=== PATIENT | male | born 1965 | race Caucasian/White ===

== ENCOUNTER 2017-08-09 19:49 | Observation (INO) | payer MEDICARE ==
[2017-08-09 20:27] LABS: #Eosinphils 0.3 thou/uL (0.0-0.7); #Lymphocytes 2.3 thou/uL (1.20-3.40); #Monocytes 0.4 thou/uL (0.11-0.59); %Basophils 0.4 % (0.0-1.0); %Eosinophils 5.8 % (0.0-10.0); %Lymphocytes 37.6 % (21.0-51.0); %Monocytes 6.9 % (0.0-10.0); %Neutrophils 49.3 % (42.0-75.0); Hemoglobin 16.1 g/dL (14.0-18.0); Mean Corpuscular HGB CONC 33.5 g/dL (32.0-36.0); Mean Corpuscular Hemoglobin 29.9 pg (27.0-31.0); Mean Corpuscular Volume 89.1 fl (80.0-94.0); Mean Platelet Volume 8.5 fL (7.4-10.4); Platelet Count 169 thou/uL (130-400); RBC Distribution Width 11.3 % (11.5-14.5); Red Blood Cell (RBC) Count 5.38 mill/uL (4.70-6.10)
[2017-08-09 20:45] LABS: ALT (SGPT) 17 U/L (8-55); AST (SGOT) 23 U/L (5-34); Albumin 3.9 g/dL (3.5-5.0); Alkaline Phosphatase 107 U/L (40-150); Anion Gap 11 mmol/L (10-20); BUN (Urea Nitrogen) 11 mg/dL (8.4-25.7); Bilirubin, Total 0.5 mg/dL (0.2-1.2); CK (CPK) 35 U/L (30-200); Calc. Creatinine Clearance 0 mL/min (70-130); Carbon Dioxide 28 mmol/L (22-29); Chloride 100 mmol/L (98-107); Estimated GFR-MDRD 78; Globulin 4.1 g/dL (2.4-3.5); Glucose 97 mg/dL (70-105); Potassium 4.4 mmol/L (3.5-5.1); Sodium 135 mmol/L (136-145)
[2017-08-09 20:50] LABS: Troponin I Less than 0.010 ng/mL (< 0.028)
[2017-08-09 21:08] LABS: CKMB 1.1 ng/mL (0-6.6)
[2017-08-09] MEDS ORDERED: Meclizine HCl 25 MG TAB ONE (21:10)
--- NOTE | 2017-08-09 21:25 | RAD ---
ONE VIEW CHEST: History: Syncopal episode. Comparison: None. FINDINGS: Normal cardiac silhouette. Lungs and pleural spaces are clear. No pneumothorax or osseous abnormality . IMPRESSION: No acute cardiopulmonary process. POS: P[facility]
--- NOTE | 2017-08-09 21:25 | RAD ---
RIGHT SHOULDER THREE VIEWS: History: Syncopal episode. Comparison: 07-06-16 FINDINGS: Visualized right ribs are unremarkable. No fracture or dislocation. IMPRESSION: No fracture or dislocation. POS: PPP
--- NOTE | 2017-08-09 21:40 | CT ---
HEAD CT WITHOUT CONTRAST: History: Fall, dizziness. Comparison: None. Technique: Noncontrast head CT is performed from skull base to skull vertex. FINDINGS: No parenchymal hemorrhage. No extraaxial hematoma. No midline shift. Basilar cisterns are patent. Bra in volume age appropriate. Cortical estrada white matter differentiation is preserved. Ventricles and sulci are patent and symmetric. Calvarium is intact. Adequate aeration of the sinuses and mastoid air cells. Cavernous carotid athero sclerosis is noted. IMPRESSION: No acute intracranial process. POS: PPP
--- NOTE | 2017-08-10 00:38 | PDOC.FPRHP ---
- History of Present Illness Chief Complaint: Dizziness History of Present Illness: 52 yo M w/hx of untreated HIV here with complaint of dizziness for apprx 2 weeks. He states that he woke apprx 2 days ago and felt like the room was spinning. Closing his eyes helps his symptoms, while standing and walking makes them worse. He as associated nausea and tinnitus b/l. He denies headache, changes in vision, or new loss of sensation or strength peripherally. Yesterday he was walking into his house and experienced a syncopal episode which was witnessed by his girlfriend. He states that he can remember feeling dizzy and then falling. She states that he was unconscious for 45 sec. She denies seizure like activity. There was no loss of continence. Afterwards there was no period of time of confusion or decreased awareness. Pt did fall on his R shoulder and has had pain with ROM since He does complain of loss of sensation in his feet for the past few years following an accident where shop equipment fell on his back. He did not have this accident worked up, however states that since that time he has had decreased sensation in his feet. Regarding HIV he has been out of his meds for a few months. He did see Dr Fajardo recently who conrado a CD4 count which resulted in 394. - Allergies/Adverse Reactions Allergies Allergy/AdvReac Type Severity Reaction Status Date / Time promethazine [From Phenergan] Allergy Verified 08/10/17 01:12 vancomycin Allergy Verified 08/10/17 01:12 - Home Medications Medication Instructions Recorded Confirmed Type No Known [No Known] 08/10/17 08/10/17 History - History PMHx: HIV, previously classified as AIDS Hep C, treated HTN Previous MAC arthritis Previous MRSA endocarditis PSHx: Multiple orthopedic surgeries on L Knee and R shoulder FHx: Paternal DM Social: Only drinks occasionally Smokes cigars Smokes marijuana - Review of Systems General: denies: fever/chills, weight/appetite/sleep changes, night sweats Eyes: denies: vision changes ENT: denies: nasal congestion Respiratory: denies: cough, congestion, shortness of breath Cardiovascular: denies: chest pain, palpitation, edema Gastrointestinal: reports: nausea, constipation (no BM in 2 days). denies: vomiting Genitourinary: denies: incontinence, dysuria Skin: denies: rashes, lesions Musculoskeletal: denies: pain, tenderness Neurological: reports: numbness (b/l feet), syncope (1 episode yesterday) Psychological: denies: anxiety, depression - Vital signs BP: 129/99 HR: 98 RR: 22 Tmax: 98.3 Pox: 95% on RA Wt: 104 kg - Physical Exam Constitutional: NAD, awake, alert and oriented HEENT: normocephalic and atraumatic, PERRLA, EOMI, grossly normal vision, grossly normal hearing, MMM Neck: supple, FROM, trachea midline, other (Carotid bruits present) Chest: no-tender to palpation Heart: RRR, no murmurs/rubs/gallops, no edema Lungs: CTAB, no respiratory distress, good air movement Abdomen: soft, non-tender, bowel sounds present Musculoskeletal: normal structure, normal tone, other (Decreased active ROM in both shoulders) Neurological: no focal deficit, CN II-XII intact, DTRs 2+ -Neurological: HINTS exam normal Significant loss of sensation in feet Proprioception intact Field of vision normal No dysdiadochokinesia Skin: no rash/lesions, good turgor Heme/Lymphatic: no unusual bruising or bleeding, no purpura Psychiatric: normal mood and affect, good judgment and insight FMR H&P: Results - Labs Result Diagrams: 08/09/17 20:18 08/09/17 20:18 Lab results: WBC 6.0 thou/uL (4.8-10.8) 08/09/17 20:18 Hgb 16.1 g/dL (14.0-18.0) 08/09/17 20:18 Hct 47.9 % (42.0-52.0) 08/09/17 20:18 MCV 89.1 fl (80.0-94.0) 08/09/17 20:18 Plt Count 169 thou/uL (130-400) 08/09/17 20:18 Neutrophils % 49.3 % (42.0-75.0) 08/09/17 20:18 Sodium 135 mmol/L (136-145) L 08/09/17 20:18 Potassium 4.4 mmol/L (3.5-5.1) 08/09/17 20:18 Chloride 100 mmol/L (98-107) 08/09/17 20:18 Carbon Dioxide 28 mmol/L (22-29) 08/09/17 20:18 BUN 11 mg/dL (8.4-25.7) 08/09/17 20:18 Creatinine 1.01 mg/dL (0.6-1.3) 08/09/17 20:18 Glucose 97 mg/dL (70-105) 08/09/17 20:18 Calcium 9.0 mg/dL (7.8-10.44) 08/09/17 20:18 Total Bilirubin 0.5 mg/dL (0.2-1.2) 08/09/17 20:18 AST 23 U/L (5-34) 08/09/17 20:18 ALT 17 U/L (8-55) 08/09/17 20:18 Alkaline Phosphatase 107 U/L (40-150) 08/09/17 20:18 Creatine Kinase 35 U/L (30-200) 08/09/17 20:18 CK-MB (CK-2) 1.1 ng/mL (0-6.6) 08/09/17 20:18 Serum Total Protein 8.0 g/dL (6.0-8.3) 08/09/17 20:18 Albumin 3.9 g/dL (3.5-5.0) 08/09/17 20:18 - EKG Interpretation EKG: NSR at 93. Left anterior fasicular block. No st changes or t wave changes. Normal axis - Radiology Interpretation CT scan - head Status: report reviewed by me (No acute process) Chest x-ray Status: image reviewed by me, report reviewed by me (No acute process) Other Status: report reviewed by me (Xray shoulder - no fracture or dislocation) FMR H&P: A/P - Problem List (1) Vertigo Current Visit: Yes Status: Acute Priority: High Code(s): R42 - DIZZINESS AND GIDDINESS (2) HIV (human immunodeficiency virus infection) Current Visit: Yes Status: Chronic Priority: High (3) HTN (hypertension) Current Visit: Yes Status: Chronic Priority: Medium Code(s): I10 - ESSENTIAL (PRIMARY) HYPERTENSION Qualifiers: Hypertension type: essential hypertension Qualified Code(s): I10 - Essential (primary) hypertension (4) Shoulder pain Current Visit: Yes Status: Acute Priority: Medium Code(s): M25.519 - PAIN IN UNSPECIFIED SHOULDER Qualifiers: Laterality: right (5) History of hepatitis C Current Visit: Yes Status: Acute Priority: Medium Code(s): Z86.19 - PERSONAL HISTORY OF OTHER INFECTIOUS AND PARASITIC DISEASES (6) Neuropathy Current Visit: Yes Status: Chronic Priority: Low Code(s): G62.9 - POLYNEUROPATHY, UNSPECIFIED (7) Syncopal episodes Current Visit: Yes Status: Acute Code(s): R55 - SYNCOPE AND COLLAPSE - Plan Vertigo - unclear etiology. Consider CVA vs BPPV vs labyrinthitis - Low concern for CVA given normat CT and HINTs - neuro exam normal with the exception of loss of sensation in feet which is apparently chronic in nature - ED consulted Dr Fajardo who recommended admission for further work up to include MRI, will order for am - fall precautions - admit to tele obs Syncopal episode - likely related to vertigo. Obs on tele to monitor for arrhythmia HIV - consult Dr Fajardo - restart HEART - is not currently immunocompromised given CD4 of 390 HTN - per previous clinic records, pt should be on lisinopril/HCTZ, however he has been off all meds for months and has not been seen by his PCP in 18 months - will monitor vitals and start meds as indicated Peripheral neuropathy - this has apparently been present for years, however has not been previously worked up. Symptoms are not necessarily consistent with trauma given no loss of motor function - will start vitamin supplementation here and recommend further work up in outpatient setting Shoulder pain - Related to fall. no fracture or dislocation. Motrin for pain Hep C, treated PPx SCD Diet regular Code Full Dispo: pt is stable. Will continue to rule out cardiac and or vascular causes of his symptoms. Likely length of stay 24-48 hours FMR H&P: Upper Level - Pertinent history PCP: Avery Patient is a 52yo CM with PMHx of HIV, Hep C s/p treatment and HTN who presents with 2-3wk hx of dizziness. Yesterday while walking into his house he opened the door and suddenly had tunnel vision. He fell and his his RT shoulder and RT side of his head. He does not remember the event. Witnessed by his and LOC for about 30sec. Denies any seizure like activity or incontinence at that time. He has had the dizziness for the past 2-3wks but has never fallen before because of it. Describes it as the room spinning like he is drunk. Worsened with head movement and going from sitting/lying position to standing. Improved with sleeping. Associated with nausea but no vomiting. Endorses BL feet/hand numbness for the past year as well as chronic noises in his ear. LT ear- like he is hearing crickets and RT ear- echo sound. Initially denies blurry vision but then states he does have it. Of note, he has not been taking his HIV medicine for 3mo. ED: 2L bolus NS, meclizine 50mg PO - Pertinent findings T 98.3 BP 141/89 HR 88 RR 20 O2 95% on RA Wt. 104kg General: NAD, resting in bed Heart: S1 S2, RRR, distant heart sounds; +BL carotid bruits Lungs: CTAB Abd: soft, NT/ND/BS+ Ext: no cyanosis or edema Neuro: CN2-12 intact; strength and FTNF difficult to obtain due to shoulder injuries, decreased sensation at BL plantar feet; decreased sensation at BL LE L >R; proprioception intact; no nystagmus; wide based gait WBC 6, H/H 16.1/47.9 CK-MB 1.1 troponin <0.01 EKG: NSR CXR: no acute process RT shoulder XR: no fracture/dislocation CT Brain: negative - Plan Date/Time: 08/10/17 0037 1. Syncope: Patient with acute episode of syncope following a fall yesterday. Denies any prodromal symptoms and just reports everything went black. Does not remember the event but was witnessed by his who reports he had LOC for about 30sec. Monitor on tele. Obtain orthostatics. No Echo at this time as patient has no major EKG abnormalities, cardiac hx or premature familial CHD. Of note, patient has fairly significant peripheral neuropathy as well as dizziness that is likely contributing to episode. Of note, patient with hx of HIV and Hep C s/p treatment. Dr. Fajardo was consulted from the ED who recommends syncope work-up and brain MRI as patient was treated with Harvoni. 2. Vertigo: Patient with 2-3wk hx of dizziness associated with nausea, but no vomiting worsened with head movements and going from sitting/lying to standing position. Could be 2/2 BPPV though Mirela hallpike was negative. Also reports tinnitus but no deafness so Menieres is low on differential. Pt with TIA/CVA RF including HTN and smoking but symptoms have been ongoing for weeks and components of HINTS exam are negative. Unclear etiology. 3. Peripheral neuropathy: Patient with 1yr hx of peripheral neuropathy. No hx of diabetes. Obtain TSH, B12,B6 and vitD. 4. HIV: diagnosed in 2006. Dr. Fajardo consulted from ED and most recent CD4 count of 394. Thus, do not suspect opportunistic infection at this time. Patient prescribed Atripla but has not been on medicine for 3mo due to financial costs. Appreciate Scotty recs. 5. HepC: s/p treatment with Harvoni by Dr. Fajardo. Reports completed treatment > 1yr ago. 6. HTN: pt denies hx of HTN but according to our records in 2016, he was on Lisinopril/HCTZ. Monitor and restart meds if needed. 7. Hx of rectal cancer s/p resection. 8. Rotator cuff tear: specifically RT shoulder with full thickness supraspinatus tendon extending into infraspinatous. LT shoulder with moderate tear near junction of supraspinatus and infraspinatus. Supposed to have surgery years ago. 9. Diet: HH 10. PPx: SCDs 11. Code Status: Full I, Kayleen Booth, have evaluated this patient and agree with findings/ plan as outlined by internal sales engineer resident. Pertinent changes/additions are listed here.
[2017-08-10] MEDS ORDERED: Bisacodyl 5 MG TAB PO PRN (01:07)
[2017-08-10] MEDS ORDERED: Ondansetron ODT 4 MG TAB PO PRN (01:07)
[2017-08-10] MEDS: Acetaminophen 325 MG TAB PO PRN ×2 (01:22→12:04)
[2017-08-10 02:04] VITALS: BMI 29.5
[2017-08-10 04:49] LABS: Thyroid Stimulating Hormone 1.3733 uIU/mL (0.35-4.94)
[2017-08-10 07:24] LABS: Vitamin D, 25 Hydroxy 29.5 ng/ml (> 30.0)
[2017-08-10] MEDS ORDERED: Meclizine HCl 25 MG TAB PO PRN (09:40)
[2017-08-10 10:02] LABS: Amphetamine Detected (NotDetected); Barbiturates Screen Not Detected (NotDetected); Benzodiazepine Screen Not Detected (NotDetected); Cocaine Metabolite Screen Not Detected (NotDetected); Medtox Control Line Valid? VALID (VALID); Medtox Reader # READER 4; Methadone Not Detected (NotDetected); Methamphetamine Detected (NotDetected); Opiate Screen Not Detected (NotDetected); Oxycodone Screen Not Detected (NotDetected); Phencyclidine (PCP) Not Detected (NotDetected); THC/Cannabinoid Screen Not Detected (NotDetected); Tricyclic Screen Not Detected (NotDetected)
--- NOTE | 2017-08-10 14:45 | ADD-HP ---
I have reviewed the history and physical of Dr. Nir Clark and have discussed the case with him. I agree with his assessment and plan. Briefly, Mr. Yadav is a 52-year-old white male patient with a history of HIV and treated hepatiti s C who was admitted with rather profound vertigo. This is likely peripheral, but Dr. Fajardo was cons ulted and has also suggested getting an MRI. His brain CT was negative. In any event this morning, he looks awake, alert, although still complaining of vertigo. PHYSICAL EXAMINATION: VITAL SIGNS: His blood pressure is 130/85. His heart rate is 82, respirations are 14. He is afebri le. GENERAL: He is awake, alert, in no distress. ENT: No focal deficits. CARDIAC: Heart rhythm regular, no gallop or murmur noted. LUNGS: Clear. No rales or wheezes. ABDOMEN: Flat and soft. No guarding, rebound or rigidity. NEUROLOGIC: No focal deficits. LABORATORY DATA: CBC: White count of 6000, hemoglobin 16.1, hematocrit 47.9. Chemistries: Sodium 135, potassium 4.4, chloride 100, bicarbonate 28, BUN 11, creatinine 1.01. As stated, his brain CT w as negative for a stroke. ASSESSMENT: 1. Acute vertigo. 2. Human immunodeficiency virus. PLAN: Admit. Consult Dr. Fajardo and proceed with MRI.
--- NOTE | 2017-08-10 14:45 | MRI ---
MRI BRAIN WITH AND WITHOUT CONTRAST: HISTORY: Syncope. COMPARISON: None. TECHNIQUE: Brain MRI is performed with and without intravenous Gadolinium administration. Multisequential, mult iplanar imaging is performed. FINDINGS: No hemorrhage on the axial gradient echo sequence. No parenchymal mass, mass effect, or midline shift. Age-appropriate atrophy. Cortical estrada-white ma tter differentiation is preserved. Ventricles and sulci are patent and symmetric. Central arterial flow voids are maintained. Absent restricted diffusion. No significant T2 and FLAIR white matter hyperintensities. No pathologic enhancement of the brain parenchyma. Calvarium has a normal T1 marrow signal intensity. Midline brain parenchymal structures are unremark able. Adequate aeration of the sinuses and mastoid air cells. IMPRESSION: 1. Absent restricted diffusion. No acute infarction. 2. No significant T2 or FLAIR white matter hyperintensities. 3. No pathologic enhancement of the brain parenchyma. POS: [facility]
[2017-08-10 15:28] VITALS: BP 136/83; TEMP 98.5
--- NOTE | 2017-08-11 15:11 | DIS-2 ---
LOCATION: [facility] in [place], [place] DATE OF SERVICE: 08/10/2017 ADMITTING ATTENDING: Dr. Elroy Hester. DISCHARGE ATTENDING: Dr. Elroy Hester. RESIDENT PHYSICIAN: Dr. Amol Calvert. CONSULTATIONS: None. PROCEDURES: 1. Chest x-ray done on 08/09/2017, showed no acute cardiopulmonary process. 2. Brain CT on 08/09/2017, showed no acute intracranial process. 3. Brain MRI done on 08/10/2017, showed no acute infarction. 4. Shoulder x-ray done on 08/09/2017, showed no fracture or dislocation. PRIMARY DIAGNOSIS: Vertigo. SECONDARY DIAGNOSES: 1. Human immunodeficiency virus. 2. History of hepatitis C, status post treatment. 3. Hypertension. 4. Neuropathy. DISCHARGE MEDICATIONS: None. DISCONTINUED MEDICATIONS: None. HISTORY OF PRESENT ILLNESS AND HOSPITAL COURSE: The patient is a 52-year-old male with a past medica l history of HIV, hypertension, and history of hepatitis C, status post Harvoni treatment, who presen patsy with a 2-week history of ringing in his ears, left worse than right with associated vertiginous-t ype symptoms. The patient reported on initial presentation, closing his eyes helps with his symptoms , while standing makes him worse. He did report some nausea associated with this. Prior to admissio n, the patient was walking in the house and had a witnessed syncopal episode that was witnessed by th e patient's girlfriend who denied any seizure-like activity. There is no loss of bowel or bladder co ntinence at that time and then afterward, there is no postictal phase. Regarding HIV, the patient has been off his meds for the past few months and he does follow up with Ramona Fajardo as outpatient who recently do a CD4 which was 394 at that time making the patient not immuno compromised. Patient was admitted to telemetry and observed overnight. There were no events on the monitor overni ght. He remained in normal sinus rhythm. Orthostatic vitals were checked which were negative. The patient's symptoms were controlled p.r.n. with meclizine and he was discharged home in stable conditi on without any events overnight or on the monitor. The patient did have a urine drug screen which was positive for methamphetamine. PERTINENT LABORATORY AND DIAGNOSTIC DATA: Initial troponin was less than 0.010, CK-MB was 0.1. Sodi um is 135. RBC folate is 850. TSH was 1.37. Vitamin D was 29.5, hematocrit 45.7. Tox screen was p ositive for urine amphetamines and methamphetamines. CBC was within normal limits. The patient had a Dyer-Hallpike maneuver performed in the ED without any resolution of the symptoms. Additionally, the patient had a brain CT done on 08/09/2017, which showed no acute intracranial proce ss. Brain MRI was done on 08/10/2017, which showed absent restricted diffusion. No acute infarction. Overall, the patient had an uncomplicated hospital course and left the hospital in stable condition. DISPOSITION: Stable. DISCHARGE INSTRUCTIONS: 1. Location: Home. 2. Diet: Heart healthy. 3. Activity: Ad albino. 4. Followup: Follow up PCP in 5-7 days following discharge.
[2017-08-11 16:14] LABS: Folate,Hemolysate 388.4 ng/mL (Not Estab.); Hematocrit 45.7 % (37.5-51.0); RBC Folate Test Component 850 ng/mL (>498)
== END 2017-08-10 17:53 | disposition home or self-care (01) ==
LOC: ERS 19:49 → 2SW 23:20
PROVIDERS: ADMIT Student in an Organized Health Care Education/Training Program; ATTEND Student in an Organized Health Care Education/Training Program
DX: R42 Dizziness and giddiness (principal); I10 Essential (primary) hypertension; M25.511 Pain in right shoulder; G62.9 Polyneuropathy, unspecified; R55 Syncope and collapse; F17.210 Nicotine dependence, cigarettes, uncomplicated; Z86.19 Personal history of other infectious and parasitic diseases; Z88.1 Allergy status to other antibiotic agents; Z88.8 Allergy status to other drugs, medicaments and biological substances; Z21 Asymptomatic human immunodeficiency virus [HIV] infection status
CPT/HCPCS: 70450; 70553; 71045; 73030; 80306; 82306; 82550; 82553; 82607; 82747; 84207; 84484; 85014; 93005; 96360; 96361; 99285; G0378; G8979; G8980; 36415; 80053; 84443; 85025; Q0162

== ENCOUNTER 2020-12-04 13:22 | Inpatient (IN) | payer MEDICARE, MEDICAID ==
[~2020-12-04 13:22] MED LIST: Iopamidol-370 76% 500 ML 1 ML ONE
[2020-12-04 15:07] LABS: #Lymphocytes 0.7 thou/uL (1.20-3.40); #Monocytes 0.3 thou/uL (0.11-0.59); #Neutrophils 1.9 thou/uL (1.40-6.50); %Basophils 1.3 % (0.0-1.0); %Eosinophils 0.5 % (0.0-10.0); %Lymphocytes 23.8 % (21.0-51.0); %Monocytes 8.9 % (0.0-10.0); %Neutrophils 65.6 % (42.0-75.0); Mean Corpuscular HGB CONC 33.8 g/dL (32.0-36.0); Mean Corpuscular Hemoglobin 30.4 pg (27.0-31.0); Mean Corpuscular Volume 89.9 fL (78.0-98.0); Mean Platelet Volume 8.7 fL (7.4-10.4); Platelet Count 174 thou/uL (130-400); RBC Distribution Width 11.7 % (11.5-14.5); Red Blood Cell (RBC) Count 4.93 mill/uL (4.70-6.10); White Blood Cell (WBC) Count 2.9 thou/uL (4.8-10.8)
[2020-12-04 15:58] LABS: ALT (SGPT) 20 U/L (8-55); AST (SGOT) 36 U/L (5-34); Albumin 3.2 g/dL (3.5-5.0); Alkaline Phosphatase 85 U/L (40-110); Anion Gap 12 mmol/L (10-20); BUN (Urea Nitrogen) 13 mg/dL (8.4-25.7); Bilirubin, Total 0.6 mg/dL (0.2-1.2); Calc. Creatinine Clearance 0 mL/min (70-130); Calcium 7.5 mg/dL (7.8-10.44); Carbon Dioxide 23 mmol/L (22-29); Chloride 106 mmol/L (98-107); Globulin 2.8 g/dL (2.4-3.5); Glucose 83 mg/dL (70-105); Potassium 4.3 mmol/L (3.5-5.1); Sodium 137 mmol/L (136-145)
[2020-12-04 16:11] LABS: CKMB 4.9 ng/mL (0-6.6)
[2020-12-04] MEDS ORDERED: cefTRIAXone\\ROCEPHIN 1 GM VIAL ONE (16:13)
[2020-12-04] MEDS ORDERED: Azithromycin 500 MG in Sodium Chloride 0.9% 250 ML 250 ML IVPB SCH (16:30)
[2020-12-04] MEDS ORDERED: Ondansetron PF 4 MG/2 ML Vial IVP PRN (17:14)
[2020-12-04] MEDS ORDERED: Bisacodyl 5 MG TAB PO PRN (17:14)
[2020-12-04] MEDS ORDERED: Enoxaparin Sodium 40 MG/0.4 ML SYRINGE SC SCH (17:15)
[2020-12-04] MEDS ORDERED: Dexamethasone 10 MG in Sodium Chloride 0.9% 50 ML IVPB SCH (17:18)
[2020-12-04] MEDS ORDERED: Enoxaparin Sodium 100 MG/ML SYRINGE ONE (18:15)
[2020-12-04] MEDS ORDERED: Dexamethasone 4 mg/ml Vial SLOW IVP SCH (18:15)
[2020-12-04 20:27] VITALS: BMI 28.0
[2020-12-04] MEDS: Famotidine/PF 20 mg/2ml Vial SLOW IVP SCH (21:02)
[2020-12-05] MEDS: Thiamine 100 MG TAB PO SCH (09:19)
[2020-12-05] MEDS: Cholecalciferol 1,000 UNITS (25 MCG) TAB PO SCH (09:19)
[2020-12-05] MEDS: Ascorbic Acid 500 mg Chewable Tablet PO SCH (09:19)
[2020-12-05] MEDS: Famotidine/PF 20 mg/2ml Vial SLOW IVP SCH ×2 (09:20→21:29)
[2020-12-05] MEDS: Zinc Sulfate 220 MG CAP PO SCH (09:20)
[2020-12-05] MEDS: Dexamethasone 4 mg/ml Vial SLOW IVP SCH (09:20)
[2020-12-05] MEDS: Enoxaparin Sodium 40 MG/0.4 ML SYRINGE SC SCH (09:21)
[2020-12-05] MEDS: guaiFENesin ER 600 MG TAB PO SCH (21:29)
[2020-12-06] MEDS: guaiFENesin 200 MG TAB PO PRN (05:55)
[2020-12-06 07:38] LABS: ALT (SGPT) 20 U/L (8-55); AST (SGOT) 23 U/L (5-34); Albumin 3.3 g/dL (3.5-5.0); Alkaline Phosphatase 86 U/L (40-110); Anion Gap 10 mmol/L (10-20); BUN (Urea Nitrogen) 17 mg/dL (8.4-25.7); Bilirubin, Total 0.4 mg/dL (0.2-1.2); Calc. Creatinine Clearance 124 mL/min (70-130); Calcium 8.8 mg/dL (7.8-10.44); Carbon Dioxide 29 mmol/L (22-29); Chloride 106 mmol/L (98-107); Globulin 3.3 g/dL (2.4-3.5); Glucose 129 mg/dL (70-105); Potassium 4.1 mmol/L (3.5-5.1); Protein, Total 6.6 g/dL (6.0-8.3); Sodium 141 mmol/L (136-145)
[2020-12-06] MEDS: Dexamethasone 4 mg/ml Vial SLOW IVP SCH (09:00)
[2020-12-06] MEDS: Cholecalciferol 1,000 UNITS (25 MCG) TAB PO SCH (09:01)
[2020-12-06] MEDS: Famotidine/PF 20 mg/2ml Vial SLOW IVP SCH ×2 (09:01→20:56)
[2020-12-06] MEDS: Enoxaparin Sodium 40 MG/0.4 ML SYRINGE SC SCH (09:01)
[2020-12-06] MEDS: guaiFENesin ER 600 MG TAB PO SCH ×2 (09:02→20:57)
[2020-12-06] MEDS: Thiamine 100 MG TAB PO SCH (09:02)
[2020-12-06] MEDS: Senokot S 8.6-50 MG TAB PO PRN ×2 (09:02→20:56)
[2020-12-06] MEDS: Ascorbic Acid 500 mg Chewable Tablet PO SCH (09:02)
[2020-12-06] MEDS: Zinc Sulfate 220 MG CAP PO SCH (09:02)
[2020-12-06] MEDS: Acetaminophen 325 MG TAB PO PRN (21:09)
[2020-12-07] MEDS: guaiFENesin 200 MG TAB PO PRN (01:30)
[2020-12-07] MEDS: guaiFENesin ER 600 MG TAB PO SCH ×2 (08:41→20:29)
[2020-12-07] MEDS: Senokot S 8.6-50 MG TAB PO PRN ×2 (08:41→20:30)
[2020-12-07] MEDS: Bictegrav/Emtricit/Tenofov Ala [Biktarvy 50-200-25 Mg Tablet] PO SCH (08:41)
[2020-12-07] MEDS: Thiamine 100 MG TAB PO SCH (08:41)
[2020-12-07] MEDS: Enoxaparin Sodium 40 MG/0.4 ML SYRINGE SC SCH (08:41)
[2020-12-07] MEDS: Famotidine/PF 20 mg/2ml Vial SLOW IVP SCH ×2 (08:42→20:29)
[2020-12-07] MEDS: Zinc Sulfate 220 MG CAP PO SCH (08:42)
[2020-12-07] MEDS: Dexamethasone 4 mg/ml Vial SLOW IVP SCH (08:42)
[2020-12-07] MEDS: Cholecalciferol 1,000 UNITS (25 MCG) TAB PO SCH (08:42)
[2020-12-07] MEDS: Ascorbic Acid 500 mg Chewable Tablet PO SCH (08:42)
[2020-12-07] MEDS ORDERED: Bictegrav/Emtricit/Tenofov Ala [Biktarvy 50-200-25 Mg Tablet] PO SCH (09:00)
[2020-12-07 10:30] LABS: ALT (SGPT) 40 U/L (8-55); AST (SGOT) 43 U/L (5-34); Albumin 3.4 g/dL (3.5-5.0); Alkaline Phosphatase 84 U/L (40-110); Anion Gap 12 mmol/L (10-20); BUN (Urea Nitrogen) 18 mg/dL (8.4-25.7); Bilirubin, Total 0.4 mg/dL (0.2-1.2); CRP (Inflammatory) 1.19 mg/dL (= or < 0.5); Calc. Creatinine Clearance 119 mL/min (70-130); Calcium 8.5 mg/dL (7.8-10.44); Carbon Dioxide 27 mmol/L (22-29); Chloride 105 mmol/L (98-107); Glucose 106 mg/dL (70-105); Potassium 3.9 mmol/L (3.5-5.1); Protein, Total 6.4 g/dL (6.0-8.3); Sodium 140 mmol/L (136-145)
[2020-12-08 07:18] LABS: ALT (SGPT) 82 U/L (8-55); AST (SGOT) 58 U/L (5-34); Albumin 3.4 g/dL (3.5-5.0); Alkaline Phosphatase 84 U/L (40-110); Anion Gap 12 mmol/L (10-20); BUN (Urea Nitrogen) 19 mg/dL (8.4-25.7); Bilirubin, Total 0.4 mg/dL (0.2-1.2); Calc. Creatinine Clearance 117 mL/min (70-130); Calcium 8.6 mg/dL (7.8-10.44); Carbon Dioxide 28 mmol/L (22-29); Chloride 104 mmol/L (98-107); Glucose 90 mg/dL (70-105); Potassium 4.3 mmol/L (3.5-5.1); Protein, Total 6.4 g/dL (6.0-8.3); Sodium 140 mmol/L (136-145)
[2020-12-08] MEDS: Zinc Sulfate 220 MG CAP PO SCH (08:18)
[2020-12-08] MEDS: Bictegrav/Emtricit/Tenofov Ala [Biktarvy 50-200-25 Mg Tablet] PO SCH (08:18)
[2020-12-08] MEDS: Thiamine 100 MG TAB PO SCH (08:18)
[2020-12-08] MEDS: guaiFENesin ER 600 MG TAB PO SCH ×2 (08:18→21:28)
[2020-12-08] MEDS: Cholecalciferol 1,000 UNITS (25 MCG) TAB PO SCH (08:18)
[2020-12-08] MEDS: Enoxaparin Sodium 40 MG/0.4 ML SYRINGE SC SCH (08:18)
[2020-12-08] MEDS: Ascorbic Acid 500 mg Chewable Tablet PO SCH (08:18)
[2020-12-08] MEDS: Dexamethasone 4 mg/ml Vial SLOW IVP SCH (08:19)
[2020-12-08] MEDS: Famotidine/PF 20 mg/2ml Vial SLOW IVP SCH ×2 (08:19→21:28)
[2020-12-08] MEDS: Senokot S 8.6-50 MG TAB PO PRN (21:28)
[2020-12-08] MEDS: Acetaminophen 325 MG TAB PO PRN (21:29)
[2020-12-09] MEDS: guaiFENesin 200 MG TAB PO PRN ×3 (04:57→17:07)
[2020-12-09] MEDS: Enoxaparin Sodium 40 MG/0.4 ML SYRINGE SC SCH (08:40)
[2020-12-09] MEDS: Bictegrav/Emtricit/Tenofov Ala [Biktarvy 50-200-25 Mg Tablet] PO SCH (08:40)
[2020-12-09] MEDS: guaiFENesin ER 600 MG TAB PO SCH ×2 (08:41→22:53)
[2020-12-09] MEDS: Dexamethasone 4 mg/ml Vial SLOW IVP SCH (08:41)
[2020-12-09] MEDS: Thiamine 100 MG TAB PO SCH (08:41)
[2020-12-09] MEDS: Cholecalciferol 1,000 UNITS (25 MCG) TAB PO SCH (08:41)
[2020-12-09] MEDS: Zinc Sulfate 220 MG CAP PO SCH (08:41)
[2020-12-09] MEDS: Ascorbic Acid 500 mg Chewable Tablet PO SCH (08:41)
[2020-12-09] MEDS: Famotidine/PF 20 mg/2ml Vial SLOW IVP SCH ×2 (08:41→22:53)
[2020-12-09 08:49] LABS: Anion Gap 14 mmol/L (10-20); BUN (Urea Nitrogen) 16 mg/dL (8.4-25.7); Calc. Creatinine Clearance 142 mL/min (70-130); Calcium 8.3 mg/dL (7.8-10.44); Carbon Dioxide 23 mmol/L (22-29); Chloride 106 mmol/L (98-107); Glucose 80 mg/dL (70-105); Sodium 138 mmol/L (136-145)
[2020-12-09 09:52] LABS: Band 14 % (5-11); Hemoglobin 15.2 g/dL (14.0-18.0); Lymphocytes 21 % (21-51); MDiff Complete? YES; Mean Corpuscular HGB CONC 32.6 g/dL (32.0-36.0); Mean Corpuscular Hemoglobin 29.8 pg (27.0-31.0); Mean Corpuscular Volume 91.5 fL (78.0-98.0); Mean Platelet Volume 9.2 fL (7.4-10.4); Monocytes 1 % (0-10); Myelocyte 2 % (0-0); Neutrophil 50 % (42-75); Platelet Count 250 thou/uL (130-400); RBC Distribution Width 11.8 % (11.5-14.5); Reactive Lymphocytes 12 % (0-10); Red Blood Cell (RBC) Count 5.11 mill/uL (4.70-6.10); White Blood Cell (WBC) Count 7.7 thou/uL (4.8-10.8)
[2020-12-10] MEDS: Enoxaparin Sodium 40 MG/0.4 ML SYRINGE SC SCH (08:18)
[2020-12-10] MEDS: Bictegrav/Emtricit/Tenofov Ala [Biktarvy 50-200-25 Mg Tablet] PO SCH (08:18)
[2020-12-10] MEDS: Zinc Sulfate 220 MG CAP PO SCH (08:18)
[2020-12-10] MEDS: Cholecalciferol 1,000 UNITS (25 MCG) TAB PO SCH (08:18)
[2020-12-10] MEDS: guaiFENesin ER 600 MG TAB PO SCH ×2 (08:18→21:06)
[2020-12-10] MEDS: Famotidine/PF 20 mg/2ml Vial SLOW IVP SCH ×2 (08:18→21:05)
[2020-12-10] MEDS: Ascorbic Acid 500 mg Chewable Tablet PO SCH (08:18)
[2020-12-10] MEDS: Dexamethasone 4 mg/ml Vial SLOW IVP SCH (08:18)
[2020-12-10] MEDS: Thiamine 100 MG TAB PO SCH (08:18)
[2020-12-11] MEDS: guaiFENesin ER 600 MG TAB PO SCH ×2 (09:37→20:47)
[2020-12-11] MEDS: Ascorbic Acid 500 mg Chewable Tablet PO SCH (09:37)
[2020-12-11] MEDS: Thiamine 100 MG TAB PO SCH (09:37)
[2020-12-11] MEDS: Enoxaparin Sodium 40 MG/0.4 ML SYRINGE SC SCH (09:37)
[2020-12-11] MEDS: Zinc Sulfate 220 MG CAP PO SCH (09:37)
[2020-12-11] MEDS: Bictegrav/Emtricit/Tenofov Ala [Biktarvy 50-200-25 Mg Tablet] PO SCH (09:37)
[2020-12-11] MEDS: Famotidine/PF 20 mg/2ml Vial SLOW IVP SCH ×2 (09:37→20:47)
[2020-12-11] MEDS: Cholecalciferol 1,000 UNITS (25 MCG) TAB PO SCH (09:37)
[2020-12-11] MEDS: Dexamethasone 4 mg/ml Vial SLOW IVP SCH (09:38)
[2020-12-12] MEDS: Bictegrav/Emtricit/Tenofov Ala [Biktarvy 50-200-25 Mg Tablet] PO SCH (08:44)
[2020-12-12] MEDS: Enoxaparin Sodium 40 MG/0.4 ML SYRINGE SC SCH (08:44)
[2020-12-12] MEDS: Ascorbic Acid 500 mg Chewable Tablet PO SCH (08:45)
[2020-12-12] MEDS: Zinc Sulfate 220 MG CAP PO SCH (08:45)
[2020-12-12] MEDS: Famotidine/PF 20 mg/2ml Vial SLOW IVP SCH (08:45)
[2020-12-12] MEDS: Cholecalciferol 1,000 UNITS (25 MCG) TAB PO SCH (08:45)
[2020-12-12] MEDS: Dexamethasone 4 mg/ml Vial SLOW IVP SCH (08:45)
[2020-12-12] MEDS: guaiFENesin ER 600 MG TAB PO SCH (08:45)
[2020-12-12] MEDS: Thiamine 100 MG TAB PO SCH (08:45)
[2020-12-12 08:46] VITALS: BP 110/76; TEMP 97.8
== END 2020-12-12 15:56 | DRG 974 ==
LOC: ERS 13:22 → T4-A 16:34
PROVIDERS: ADMIT Internal Medicine; ATTEND Hospitalist
PROC: 8E0ZXY6 Isolation (ICD-10-PCS; principal; 2020-12-04)
PROC: 3E0333Z Introduction of Anti-inflammatory into Peripheral Vein, Percutaneous Approach (ICD-10-PCS; 2020-12-04)
DX: U07.1 COVID-19 (principal); J96.01 Acute respiratory failure with hypoxia; B20 Human immunodeficiency virus [HIV] disease; J12.82 Pneumonia due to coronavirus disease 2019; I10 Essential (primary) hypertension; M19.90 Unspecified osteoarthritis, unspecified site; F31.9 Bipolar disorder, unspecified; F12.10 Cannabis abuse, uncomplicated; F19.10 Other psychoactive substance abuse, uncomplicated; F17.210 Nicotine dependence, cigarettes, uncomplicated; G62.9 Polyneuropathy, unspecified; Z88.1 Allergy status to other antibiotic agents; Z88.8 Allergy status to other drugs, medicaments and biological substances; Z91.14 Patient's other noncompliance with medication regimen; Z83.3 Family history of diabetes mellitus; Z86.19 Personal history of other infectious and parasitic diseases
CPT/HCPCS: 36415; 71045; 71275; 80048; 80053; 82553; 83605; 84145; 84484; 85007; 85025; 85027; 85379; 85652; 86140; 87040; 93005; 94760; J0456; J0696; J1100; J1650; J7050; Q9967; S0028

== ENCOUNTER 2021-06-13 15:32 | Inpatient (IN) | payer MEDICARE, MEDICAID ==
[~2021-06-13 15:32] MED LIST changes: +Cyclobenzaprine 10 MG TAB PO PRN; -Iopamidol-370 76% 500 ML 1 ML ONE; +traMADol HCl 50 MG TAB PO PRN
[2021-06-13] MEDS ORDERED: Ondansetron PF 4 MG/2 ML Vial ONE (16:03)
[2021-06-13] MEDS ORDERED: Morphine 4 MG/ML VIAL ONE (16:03)
[2021-06-13] MEDS ORDERED: Cyclobenzaprine 10 MG TAB PO PRN ×2 (22:22→23:31)
[2021-06-13] MEDS ORDERED: traMADol HCl 50 MG TAB PO PRN ×2 (22:22→23:31)
[2021-06-13 22:23] LABS: #Eosinphils 0.3 thou/uL (0.0-0.7); #Lymphocytes 1.3 thou/uL (1.20-3.40); #Monocytes 0.3 thou/uL (0.11-0.59); #Neutrophils 2.3 thou/uL (1.40-6.50); %Eosinophils 6.4 % (0.0-10.0); %Lymphocytes 31.3 % (21.0-51.0); %Monocytes 7.6 % (0.0-10.0); %Neutrophils 53.7 % (42.0-75.0); Hemoglobin 13.8 g/dL (14.0-18.0); Mean Corpuscular HGB CONC 33.6 g/dL (32.0-36.0); Mean Corpuscular Hemoglobin 31.1 pg (27.0-31.0); Mean Corpuscular Volume 92.6 fL (78.0-98.0); Mean Platelet Volume 7.7 fL (7.4-10.4); Platelet Count 192 thou/uL (130-400); RBC Distribution Width 12.9 % (11.5-14.5); Red Blood Cell (RBC) Count 4.43 mill/uL (4.70-6.10); White Blood Cell (WBC) Count 4.3 thou/uL (4.8-10.8)
[2021-06-13] MEDS ORDERED: hydrALAZINE 20 MG/ML VIAL SLOW IVP PRN (22:23)
[2021-06-13] MEDS ORDERED: Promethazine HCl 25 MG/ML VIAL IM PRN (22:23)
[2021-06-13] MEDS ORDERED: Ondansetron PF 4 MG/2 ML Vial IVP PRN (22:23)
[2021-06-13] MEDS ORDERED: Dextrose 5% in Water 1,000 ML IV PRN (22:23)
[2021-06-13] MEDS ORDERED: Dextrose 50% Abboject 50 ML SYRINGE SLOW IVP PRN (22:23)
[2021-06-13] MEDS ORDERED: Bisacodyl 5 MG TAB PO PRN (22:24)
[2021-06-13] MEDS ORDERED: Ketorolac Tromethamine 30 MG/ML VIAL IVP SCH ×2 (22:30)
[2021-06-13] MEDS ORDERED: Acetaminophen 325 MG TAB PO SCH (22:30)
[2021-06-13] MEDS ORDERED: Acetaminophen 500 MG TAB PO SCH (22:30)
[2021-06-13] MEDS ORDERED: traMADol HCl 50 MG TAB PO SCH ×3 (22:30→23:59)
[2021-06-13 22:44] LABS: Anion Gap 11 mmol/L (10-20); BUN (Urea Nitrogen) 11 mg/dL (8.4-25.7); Calc. Creatinine Clearance 0 mL/min (70-130); Carbon Dioxide 22 mmol/L (22-29); Chloride 108 mmol/L (98-107); Potassium 3.6 mmol/L (3.5-5.1); Sodium 137 mmol/L (136-145)
[2021-06-13 22:45] LABS: ALT (SGPT) 15 U/L (8-55); AST (SGOT) 19 U/L (5-34); Albumin 3.7 g/dL (3.5-5.0); Alkaline Phosphatase 138 U/L (40-110); Bilirubin, Total 1.2 mg/dL (0.2-1.2); Calcium 8.2 mg/dL (7.8-10.44); Globulin 2.6 g/dL (2.4-3.5); Glucose 97 mg/dL (70-105); Protein, Total 6.3 g/dL (6.0-8.3)
[2021-06-13] MEDS ORDERED: Ketorolac Tromethamine 30 MG/ML VIAL ONE (23:06)
[2021-06-14 04:30] VITALS: BMI 27.8
[2021-06-14] MEDS ORDERED: Acetaminophen 325 MG TAB PO SCH (04:30)
[2021-06-14] MEDS: Acetaminophen 500 MG TAB PO SCH ×3 (05:27→19:39)
[2021-06-14] MEDS: Ibuprofen 600 MG TAB PO SCH ×3 (05:28→21:11)
[2021-06-14] MEDS: traMADol HCl 50 MG TAB PO SCH ×3 (05:28→17:41)
[2021-06-14] MEDS ORDERED: Senokot S 8.6-50 MG TAB PO SCH ×2 (09:00)
[2021-06-14] MEDS ORDERED: Famotidine 20 MG TAB PO SCH (09:00)
[2021-06-14] MEDS: Famotidine 20 MG TAB PO SCH ×2 (09:22→21:10)
[2021-06-14] MEDS: Zinc Sulfate 220 MG CAP PO SCH (09:22)
[2021-06-14] MEDS: Senokot S 8.6-50 MG TAB PO SCH ×2 (09:22→21:10)
[2021-06-14] MEDS: Ascorbic Acid 500 mg Chewable Tablet PO SCH (09:22)
[2021-06-14 12:25] LABS: SARS-CoV-2 PCR by NAA Not Detected (NotDetected)
[2021-06-14] MEDS: Gabapentin 300 MG CAP PO SCH ×2 (17:41→21:10)
[2021-06-15] MEDS: Acetaminophen 500 MG TAB PO SCH ×3 (00:02→11:11)
[2021-06-15] MEDS: traMADol HCl 50 MG TAB PO SCH ×3 (00:02→11:12)
[2021-06-15] MEDS: Ibuprofen 600 MG TAB PO SCH ×2 (05:26→14:13)
[2021-06-15] MEDS: Ascorbic Acid 500 mg Chewable Tablet PO SCH (08:19)
[2021-06-15] MEDS: Famotidine 20 MG TAB PO SCH (08:20)
[2021-06-15] MEDS: Gabapentin 300 MG CAP PO SCH ×2 (08:20→14:14)
[2021-06-15] MEDS: Zinc Sulfate 220 MG CAP PO SCH (08:22)
[2021-06-15] MEDS: Senokot S 8.6-50 MG TAB PO SCH (08:22)
[2021-06-15 12:17] VITALS: BP 141/67; TEMP 98
== END 2021-06-15 14:30 | disposition home or self-care (01) | DRG 561 ==
LOC: ERS 15:32 → SURG B 23:29 → OBSVTOIN 06-14 17:31
PROVIDERS: ADMIT Surgery; ATTEND Surgery
DX: T84.020A Dislocation of internal right hip prosthesis, initial encounter (principal); S76.012A Strain of muscle, fascia and tendon of left hip, initial encounter; W18.30XA Fall on same level, unspecified, initial encounter; Z20.822 Contact with and (suspected) exposure to COVID-19; F17.290 Nicotine dependence, other tobacco product, uncomplicated; Y83.1 Surgical operation with implant of artificial internal device as the cause of abnormal reaction of the patient, or of later complication, without mention of misadventure at the time of the procedure; Y92.009 Unspecified place in unspecified non-institutional (private) residence as the place of occurrence of the external cause
CPT/HCPCS: 36415; 70450; 71045; 80053; 85025; 96374; 96375; G0378; G0390; J1885; J2270; J2405; U0003; U0005